=== PATIENT | female | born 1995 | race Two or more races ===

== ENCOUNTER 2016-07-24 16:24 | Inpatient (IN) | payer BC, MEDICAID ==
[2016-07-24] MEDS ORDERED: PRENATAL COMPL1 EACH PO (16:57)
[2016-07-24] MEDS ORDERED: IMODIUM A-D2 M4 PO (16:58)
[2016-07-24] MEDS ORDERED: RANITIDINE HCL150 M3 PO (16:58)
[2016-07-24] MEDS ORDERED: PROBIOTIC1 EAC6 PO (16:59)
[2016-07-24 17:53] LABS: HCT-HEMATOCRIT 26.9 % (34.0-49.0); HGB-HEMOGLOBIN 8.8 gm/dl (12.0-15.5); MCH (MEAN CORPUSCULAR HGB) 28.7 pg (28.0-32.0); MCHC MEAN CORPUSCULAR HGB CONC 32.7 % (32.0-36.0); MCV (MEAN CELL VOLUME) 87.6 fl (82.0-96.0); NEUTROPHIL-AUTOMATED 9.2 tho/cmm (1.6-8.0); PLATELET COUNT 393 tho/cmm (150-450); RED BLOOD COUNT 3.07 mil/cmm (4.00-5.20); RED CELL DISTRIBUTION WIDTH 13.8 % (12.4-16.4); WHITE BLOOD COUNT 13.7 tho/cmm (4.0-10.0)
[2016-07-24 18:01] LABS: BASO % 0.1 % (0-2); EOS % 2.7 % (0-7); EOSINOPHIL ABSOLUTE COUNT 0.4 tho/cmm (0.0-0.7); IMMATURE GRANULOCYTES ABSOLUTE 0.84 tho/cmm (0-0.03); IMMATURE GRANULOCYTES PERCENT 6.1 % (0-0.3); LYMPH % 12.9 % (20-45); LYMPH ABSOLUTE COUNT 1.8 tho/cmm (0.8-4.5); MONO % 11.2 % (0-12); MONOCYTE ABSOLUTE COUNT 1.5 tho/cmm (0.0-1.2); NEUTROPHIL ABSOLUTE COUNT 9.2 tho/cmm (1.6-8.0)
[2016-07-24 18:14] LABS: ALB/GLOB RATIO 0.3 (0.8-2.0); ALBUMIN 1.6 g/dl (3.5-5.0); ALKALINE PHOSPHATASE 100 U/L (33-138); ANION GAP 11 mmol/L (0-20); AST/SGOT 12 U/L (10-40); BILIRUBIN,TOTAL 0.5 mg/dl (0-1.5); BLOOD UREA NITROGEN 6 mg/dl (6-24); CALCIUM 7.5 mg/dl (8.5-10.5); CARBON DIOXIDE-VENOUS 29 mmol/L (22-32); CHLORIDE 94 mmol/l (96-110); CREATININE 0.22 mg/dl (0.50-1.10); GLUCOSE 77 mg/dL (70-110); POTASSIUM 3.2 mmol/L (3.7-5.1); SODIUM 131 mmol/L (135-145); eGFR VALUE FOR BLACK >90 mL/Min
[2016-07-24 18:17] LABS: ALT/SGPT 10 U/L (12-78)
[2016-07-24 18:23] LABS: C-REACTIVE PROTEIN 20.4 mg/dl (0-0.9)
--- NOTE | 2016-07-24 19:21 | NUR ---
DIRECTOR [employer]ATIONS (YARED) CALLED RN ASKING IF PATIENT IS AT RISK FOR BEING , RN INFORMED HIM THAT SHE WAS 12 WEEKS PREGNENT. YARED ASKED IF WE SHOULD DUE A MRI INSTEAD D/T HER BEING IN THE FIRST TRIMESTER AND DUE TO THE HIGH AMMOUNT OF RADIATION. I CALLED GI AND TALKED WITH DR MONTESINOS HE THOUGHT WE SHOULD DO A MRI BUT WAS GOING TO CHECK WITH DR LEBLANC. DR MONTESINOS CALLED ME BACK AND SAID THAT DR LEBLANC DID WAS A CT SCAN AND HAD TALKED WITH DR LUCIANO ABOUT IT ALREADY AND BOTH WERE ON THE SAME PAGE.
[2016-07-25 04:56] LABS: BASO % 0.2 % (0-2); EOS % 0.3 % (0-7); HCT-HEMATOCRIT 24.8 % (34.0-49.0); HGB-HEMOGLOBIN 7.8 gm/dl (12.0-15.5); IMMATURE GRANULOCYTES ABSOLUTE 0.27 tho/cmm (0-0.03); IMMATURE GRANULOCYTES PERCENT 2.4 % (0-0.3); LYMPH % 15.1 % (20-45); LYMPH ABSOLUTE COUNT 1.7 tho/cmm (0.8-4.5); MCH (MEAN CORPUSCULAR HGB) 27.9 pg (28.0-32.0); MCHC MEAN CORPUSCULAR HGB CONC 31.5 % (32.0-36.0); MCV (MEAN CELL VOLUME) 88.6 fl (82.0-96.0); MEAN PLATELET VOLUME 8.9 cmc (9.4-12.4); MONO % 10.2 % (0-12); MONOCYTE ABSOLUTE COUNT 1.1 tho/cmm (0.0-1.2); NEUTROPHILS % 71.8 % (40-80); PLATELET COUNT 359 tho/cmm (150-450); RED CELL DISTRIBUTION WIDTH 13.6 % (12.4-16.4); WHITE BLOOD COUNT 11.1 tho/cmm (4.0-10.0)
[2016-07-25 05:00] LABS: ANION GAP 11 mmol/L (0-20); BLOOD UREA NITROGEN 5 mg/dl (6-24); CALCIUM 7.3 mg/dl (8.5-10.5); CARBON DIOXIDE-VENOUS 29 mmol/L (22-32); CHLORIDE 97 mmol/l (96-110); GLUCOSE 76 mg/dL (70-110); POTASSIUM 3.2 mmol/L (3.7-5.1); SODIUM 134 mmol/L (135-145); eGFR VALUE FOR BLACK >90 mL/Min
[2016-07-26 05:57] LABS: BASO % 0.1 % (0-2); HGB-HEMOGLOBIN 7.5 gm/dl (12.0-15.5); IMMATURE GRANULOCYTES ABSOLUTE 0.24 tho/cmm (0-0.03); IMMATURE GRANULOCYTES PERCENT 2.3 % (0-0.3); LYMPH ABSOLUTE COUNT 1.2 tho/cmm (0.8-4.5); MCH (MEAN CORPUSCULAR HGB) 28.2 pg (28.0-32.0); MCV (MEAN CELL VOLUME) 88.3 fl (82.0-96.0); MEAN PLATELET VOLUME 8.7 cmc (9.4-12.4); MONO % 5.4 % (0-12); MONOCYTE ABSOLUTE COUNT 0.6 tho/cmm (0.0-1.2); NEUTROPHIL ABSOLUTE COUNT 8.6 tho/cmm (1.6-8.0); NEUTROPHIL-AUTOMATED 8.6 tho/cmm (1.6-8.0); NEUTROPHILS % 81.2 % (40-80); PLATELET COUNT 367 tho/cmm (150-450); RED BLOOD COUNT 2.66 mil/cmm (4.00-5.20); RED CELL DISTRIBUTION WIDTH 13.7 % (12.4-16.4); WHITE BLOOD COUNT 10.6 tho/cmm (4.0-10.0)
[2016-07-26 05:58] LABS: HCT-HEMATOCRIT 23.5 % (34.0-49.0); MCHC MEAN CORPUSCULAR HGB CONC 31.9 % (32.0-36.0)
[2016-07-26 06:21] LABS: ANION GAP 10 mmol/L (0-20); BLOOD UREA NITROGEN 4 mg/dl (6-24); CALCIUM 7.6 mg/dl (8.5-10.5); CARBON DIOXIDE-VENOUS 28 mmol/L (22-32); CHLORIDE 101 mmol/l (96-110); GLUCOSE 101 mg/dL (70-110); POTASSIUM 3.4 mmol/L (3.7-5.1); SODIUM 136 mmol/L (135-145)
[2016-07-26 06:35] LABS: CREATININE <0.20 mg/dl (0.50-1.10); eGFR VALUE FOR BLACK >90 mL/Min
[2016-07-27 06:20] LABS: ANION GAP 10 mmol/L (0-20); BLOOD UREA NITROGEN 5 mg/dl (6-24); CALCIUM 7.6 mg/dl (8.5-10.5); CARBON DIOXIDE-VENOUS 29 mmol/L (22-32); CHLORIDE 104 mmol/l (96-110); GLUCOSE 99 mg/dL (70-110); POTASSIUM 3.6 mmol/L (3.7-5.1); SODIUM 139 mmol/L (135-145)
[2016-07-27 06:26] LABS: CREATININE <0.20 mg/dl (0.50-1.10); eGFR VALUE FOR BLACK >90 mL/Min
[2016-07-27] MEDS ORDERED: IMURAN50 M1 PO (09:29)
[2016-07-27] MEDS ORDERED: PREDNISONE5 M1 PO (09:29)
== END 2016-07-27 10:30 | DRG 781 ==
LOC: 5WE 16:24
PROVIDERS: Specialist; ADMIT Obstetrics & Gynecology Maternal & Fetal Medicine
PROC: 0DBN8ZX Excision of Sigmoid Colon, Via Natural or Artificial Opening Endoscopic, Diagnostic (ICD-10-PCS; principal; 2016-07-25)
PROC: 0DBK8ZX Excision of Ascending Colon, Via Natural or Artificial Opening Endoscopic, Diagnostic (ICD-10-PCS; principal; 2016-07-25)
PROC: 0DBL8ZX Excision of Transverse Colon, Via Natural or Artificial Opening Endoscopic, Diagnostic (ICD-10-PCS; principal; 2016-07-25)
DX: O99.612 Diseases of the digestive system complicating pregnancy, second trimester (principal); K63.3 Ulcer of intestine; E88.09 Other disorders of plasma-protein metabolism, not elsewhere classified; K50.10 Crohn's disease of large intestine without complications; O21.1 Hyperemesis gravidarum with metabolic disturbance; D64.9 Anemia, unspecified; Z3A.12 12 weeks gestation of pregnancy
CPT/HCPCS: G0500; J1650; J2250; J2920; J3010; J7030; J7500; Q9967